=== PATIENT | male | born 1955 | race Caucasian/White ===

== ENCOUNTER 2024-10-28 13:19 | Inpatient (IN) | payer MEDICARE, OTHER ==
[~2024-10-28] VITALS: Ht 190.5 cm; Wt 93.9 kg
[~2024-10-28 13:19] MED LIST: ASPIRIN81 M1; METOPROLOL SUCC50 MG; PLAVIX75 MG
[2024-10-28 14:56] LABS: BASOPHILS % 0.9 % (0.0-1.0); EOSINOPHILS % 2.0 % (0.0-6.0); LYMPHOCYTES % 22.3 % (18.0-39.1); MONOCYTES % 9.7 % (4.4-11.3); NEUTROPHILS % 64.8 % (38.7-80.0); RED CELL DISTRIBUTION WIDTH 13.4 % (11.7-14.4)
[2024-10-28] MEDS: SODIUM CHLORIDE 0.9% 1000ML 1,000 ML IV STA (15:09)
[2024-10-28 15:11] LABS: INR 1.04
[2024-10-28 15:15] VITALS: TEMP 98.1
[2024-10-28 15:20] LABS: EST GLOMERULAR FILTRATION RATE 76.0 ML/MIN (>=60)
[2024-10-28] MEDS: HYDRALAZINE HCL 20 MG/ML VIAL IV PRN (15:20)
[2024-10-28] MEDS: METOPROLOL TARTRATE INJ 1 MG/ML VIAL IV ONE (16:59)
[2024-10-28] MEDS ORDERED: ONDANSETRON HCL INJ 2MG/ML 2ML 2 MG/ML VIAL IV PRN (17:45)
[2024-10-28] MEDS ORDERED: Morphine 4mg INJECTION 4 MG/ML INJ IV PRN (17:45)
[2024-10-28] MEDS: AMLODIPINE BESYLATE 10 MG TAB PO SCH (18:11)
[2024-10-28] MEDS: SODIUM CHLORIDE 0.9% 1000ML 1,000 ML IV SCH (18:12)
[2024-10-28] MEDS: HYDRALAZINE HCL 20 MG/ML VIAL IV STA (18:12)
[2024-10-28] MEDS: NICARDIPINE 20MG/200ML PREMIX 200 ML IV SCH (19:17)
[2024-10-29] MEDS: NICARDIPINE 20MG/200ML PREMIX 200 ML IV SCH
[2024-10-29] MEDS ORDERED: MAGNESIUM/ALUMINUM/SIMETHICONE 30 ML UDC PO PRN
[2024-10-29] MEDS ORDERED: GUAIFENESIN 200 MG/10 ML UDC PO PRN
[2024-10-29] MEDS ORDERED: METOPROLOL TARTRATE INJ 1 MG/ML VIAL IV PRN
[2024-10-29] MEDS ORDERED: Morphine 2mg Syringe 2 MG/ML SYR IV PRN (00:30)
[2024-10-29] MEDS: ENOXAPARIN INJ 80 MG/0.8 ML SYR SC SCH (01:13)
[2024-10-29 05:18] LABS: BASOPHILS % 0.6 % (0.0-1.0); EOSINOPHILS % 2.1 % (0.0-6.0); LYMPHOCYTES % 22.7 % (18.0-39.1); MONOCYTES % 11.0 % (4.4-11.3); NEUTROPHILS % 63.3 % (38.7-80.0); RED CELL DISTRIBUTION WIDTH 13.6 % (11.7-14.4)
[2024-10-29 05:36] LABS: EST GLOMERULAR FILTRATION RATE 84.0 ML/MIN (>=60)
[2024-10-29] MEDS: ASPIRIN 81 MG ENTERIC COATED PO SCH (08:04)
[2024-10-29] MEDS: MULTIVITAMINS/MINERALS TAB PO SCH (08:05)
[2024-10-29] MEDS: THIAMINE HCL 100 MG TAB PO SCH (08:05)
[2024-10-29] MEDS: CLOPIDOGREL BISULFATE 75 MG TAB PO SCH (08:05)
[2024-10-29] MEDS: METOPROLOL SUCCINATE 50 MG TAB XL PO SCH (08:06)
[2024-10-29] MEDS: ACETAMINOPHEN 325 MG TAB PO PRN (11:35)
[2024-10-29 12:00] VITALS: PULSE 67; RESP 18
[2024-10-29 15:46] VITALS: BP 137/94; PULSE 83; RESP 18; TEMP 97.7; O2SAT 99
[2024-10-29 16:00] VITALS: BP 137/94; PULSE 83; RESP 18; TEMP 97.7; O2SAT 99
[2024-10-29] MEDS ORDERED: COREG3.125 MG PO (18:52)
[2024-10-29] MEDS ORDERED: LOSARTAN POTASS25 MG PO (18:52)
[2024-10-29] MEDS ORDERED: CRESTOR40 MG (18:52)
[2024-10-29] MEDS ORDERED: FENOFIBRATE145 MG PO (18:52)
[2024-10-29] MEDS ORDERED: TRICOR48 MG PO (18:52)
[2024-10-29] MEDS ORDERED: VITAMIN D350 MCG (18:52)
[2024-10-29 20:30] VITALS: BP 165/106; PULSE 93; RESP 18; TEMP 98; O2SAT 99
[2024-10-29] MEDS: MELATONIN 3 MG TAB PO PRN (20:34)
[2024-10-29] MEDS: ATORVASTATIN 40 MG TAB PO SCH (20:34)
[2024-10-30] VITALS (7 sets, daily range): BP systolic 137–184; BP diastolic 81–110; PULSE 58–90; RESP 16–20; TEMP 97.4–98.5; O2SAT 98–99
[2024-10-30] MEDS: AMIODARONE HCL 200 MG TAB PO ONE (11:34)
[2024-10-30] MEDS: LOSARTAN POTASSIUM 25 MG TAB PO SCH (11:34)
[2024-10-30] MEDS: APIXABAN 5 MG TABLET PO SCH (17:46)
[2024-10-31] VITALS (9 sets, daily range): BP systolic 136–158; BP diastolic 87–96; PULSE 52–77; RESP 18; TEMP 97.5–99.2; O2SAT 98–100
[2024-11-01 04:00] VITALS: BP 141/87; PULSE 71; RESP 18; TEMP 98; O2SAT 98
[2024-11-01 08:00] VITALS: BP 161/91; PULSE 60; RESP 19; TEMP 98.1; O2SAT 100
[2024-11-01] MEDS: AMIODARONE HCL 200 MG TAB PO SCH (08:02)
[2024-11-01 08:53] VITALS: BP 161/91; PULSE 60; RESP 19; TEMP 98.1; O2SAT 100
== END 2024-11-01 10:36 | disposition home or self-care (01) | DRG 69 ==
LOC: ER 13:25 → ERHOLD 18:27 → MED/SURG2 10-29 13:48
PROVIDERS: ADMIT Internal Medicine; ATTEND Internal Medicine
DX: G45.9 Transient cerebral ischemic attack, unspecified (principal); I16.1 Hypertensive emergency; I67.4 Hypertensive encephalopathy; R41.2 Retrograde amnesia; I16.0 Hypertensive urgency; I10 Essential (primary) hypertension; I48.91 Unspecified atrial fibrillation; I49.3 Ventricular premature depolarization; Z95.2 Presence of prosthetic heart valve; E78.5 Hyperlipidemia, unspecified; I25.10 Atherosclerotic heart disease of native coronary artery without angina pectoris; R29.810 Facial weakness; M17.12 Unilateral primary osteoarthritis, left knee; G45.4 Transient global amnesia; Z95.1 Presence of aortocoronary bypass graft; Z95.5 Presence of coronary angioplasty implant and graft; Z79.82 Long term (current) use of aspirin; Z79.02 Long term (current) use of antithrombotics/antiplatelets
CPT/HCPCS: 36415; 70551; 71045; 80053; 82550; 82948; 83690; 83880; 84443; 84484; 85025; 85610; 93005; 93306; 93880; 99284; J0360; J1650; J3411; J7030